=== PATIENT | female | born 1990 | race Hispanic/Latino ===

== ENCOUNTER 2025-02-09 17:06 | Emergency (ER) | payer BC, MEDICAID ==
[~2025-02-09] VITALS: Ht 160 cm; Wt 94.3 kg
[~2025-02-09 17:06] MED LIST: GLYB2.5T6 PO; PREN-64 PO
--- NOTE | 2025-02-09 17:29 | ERN ---
ED Note History of Present Illness Stated Complaint: LEFT ABD PAIN, HEADACHES, CANT SWALLOW Chief Complaint: Abdominal Pain Time Seen by MD: 17:07 Time Seen by Midlevel: 17:07 Dictation: The patient is a 34-year-old female with a history of asthma, migraines, C- section who presents to the emergency department with multiple complaints. Patient reports that four week she has been having sore throat, left lower abdominal pain and suprapubic pain, nausea nonbloody vomiting, nonbloody diarrhea. Patient also reports she has been dealing with a migraine. Reports frontal headache. Reports she gets migraines often. Reports fevers a week ago. Patient also reports occasional nasal congestion. Denies any head trauma. Allergies: Coded Allergies: No Known Drug Allergies (Unverified Allergy, Unknown, 08/31/19) Home Meds Reported Medications Glyburide (Glyburide 2.5MG Tab) 2.5 Mg Tab, 2.5 MG PO DAILY, TAB 09/01/19 Vit #76/Iron,Carb/FA (Prenatabs Rx Tablet) 1 Each Tablet, 1 EACH PO [id number], TAB 09/01/19 Past Medical History Past Medical History: Anxiety, Asthma, Depression, Hypertension Surgical History: RN Note Reviewed/Agreed w/PFSH: Yes Review of System Dictation Constitutional: Negative for chills, and weight loss positive for fever Eyes: Negative for injury, pain,redness, and discharge ENT: Negative for injury,pain or swelling positive for nasal congestion , sore throat Cardiovascular: Negative for chest pain, palpitations, and edema Respiratory: Negative for shortness of breath, cough, and wheezing, Abdomen/GI: Negative for constipation positive for abdominal pain, nausea, vomiting, diarrhea Back: Negative for injury and pain : Negative for injury, bleeding and discharge MS/Extremity: Negative for injury and deformity Skin: Negative for rash, and discoloration Neuro: Negative for , weakness, numbness, tingling, and seizure positive for headache Psych: Negative for suicide ideation, homicidal ideation, and hallucinations Initial Vital Sign VS Vital Signs Date Time Temp Pulse Resp B/P (MAP) Pulse Ox O2 Delivery O2 Flow Rate FiO2 02/09/25 17:13 99.0 90 18 148/100 99 Room Air 0 02/09/25 18:51 21 Physical Exam Dictation Vital Signs reviewed General Appearance: Alert, oriented x 3, no acute distress, well developed, nourished. Head and Face: non-traumatic. Eyes: PERRL, pink conjunctivas, eyelid no trauma, anterior chamber with arcus senilis. Ears: Pinnas intact and no signs of trauma or erythema ear canals clear and no discharge TM no erythema Nose: No discharge, no bleeding. Oropharynx: Mouth normal, tongue pink. pharynx clear,+ erythema, tonsils no exudates,3+ no abscesses noted, no uvula deviation, mucous membrane moist Neck: Supple, non-tender, no thyromegaly, no masses, no JVD, no bruits Breast:Deferred Chest:No tenderness, no crepitus, no paradoxical movement, no retractions Lungs:Clear, well-ventilated, symmetric, no rales, no wheezing, no rhonchi, no stridor, good breath sounds bilaterally Heart: Regular rate, regular rhythm, no murmur, no gallops Vascular: no peripheral edema, Abdomen: Soft, positive bowel sounds, nondistended, no guarding, nontender, no rebound, no masses no hepatomegaly, no splenomegaly, no Ruiz's sign, no hernias. Rectal: Deferred Genital: Deferred Neurological: Normal speech, motor function intact, sensory function intact Musculoskeletal: Neck nontender, full range of motion, back nontender, full range of motion, Extremities: nontender, full range of motion Skin: Color pink, dry, no turgor, no rash, no lacerations, no abrasions, no contusions. Lymphatic: Deferred Results (Laboratory/Radiology) Laboratory/Radiology Laboratory Tests Test 02/09/25 17:20 02/09/25 17:34 02/09/25 19:25 Influenza Type A Antigen Negative For Type A Influenza Type B Antigen Negative For Type B SARS-CoV-2 Antigen (Rapid) PRESUMPTIVE NEGATIVE Group A Streptococcus Rapid negative (NEGATIVE) White Blood Count 10.1 K/uL (4.8-10.8) Red Blood Count 4.40 MIL/uL (4.00-5.50) Hemoglobin 12.0 g/dL (12.0-16.0) Hematocrit 37.5 % (36-48) Mean Corpuscular Volume 85.2 fL (79-99) Mean Corpuscular Hemoglobin 27.3 pg (27.0-33.0) Mean Corpuscular Hemoglobin Concent 32.0 g/dL (32.0-36.0) Red Cell Distribution Width 15.1 % (11.0-15.5) Platelet Count 325 K/uL (130-400) Mean Platelet Volume 9.5 fL (7.5-10.5) Immature Granulocyte % (Auto) 0.3 % (0-1) Neutrophils (%) (Auto) 75.4 % (40.0-77.0) Lymphocytes (%) (Auto) 14.9 % (21.0-51.0) L Monocytes (%) (Auto) 8.2 % (3.0-13.0) Eosinophils (%) (Auto) 1.0 % (0.0-8.0) Basophils (%) (Auto) 0.2 % (0.0-5.0) Neutrophils # (Auto) 7.6 K/uL (1.8-7.7) Lymphocytes # (Auto) 1.5 K/uL (1.0-4.8) Monocytes # (Auto) 0.8 K/uL (0.1-1.0) Eosinophils # (Auto) 0.10 K/uL (0.00-0.70) Basophils # (Auto) 0.02 K/uL (0.00-0.20) Absolute Immature Granulocyte (auto 0.03 K/uL (0-1) Nucleated Red Blood Cells 0.0 % (0.0-0.19) Sodium Level 142 mmol/L (136-145) Potassium Level 3.3 mmol/L (3.5-5.1) L Chloride Level 104 mmol/L (101-111) Carbon Dioxide Level 29 mmol/L (21-32) Blood Urea Nitrogen 7 mg/dL (7-18) Creatinine 0.7 mg/dL (0.5-1.0) Glomerular Filtration Rate Calc 118 mL/min (>90) Random Glucose 133 mg/dL (70-105) H Total Calcium 9.1 mg/dL (8.5-10.1) Lipase 30 U/L (16-77) Urine Color YELLOW (YELLOW) Urine Appearance CLEAR (CLEAR) Urine pH 7.0 (5.0-8.0) Urine Specific Gipsy 1.010 (1.001-1.031) Urine Protein NEGATIVE mg/dL (NEGATIVE) Urine Glucose (UA) NEGATIVE mg/dL (NEGATIVE) Urine Ketones NEGATIVE mg/dL (NEGATIVE) Urine Occult Blood NEGATIVE (NEGATIVE) Urine Nitrate NEGATIVE (NEGATIVE) Urine Bilirubin NEGATIVE mg/dL (NEGATIVE) Urine Urobilinogen 4.0 mg/dL (0.2-1.0) H Urine Leukocyte Esterase NEGATIVE Robert/uL Urine RBC 2-5 /HPF (0-1) H Urine WBC 2-5 /HPF (0-1) H Urine Squamous Epithelial Cells FEW /HPF (0-2) Urine Non-Squamous Epithelial Cells <1 /HPF (0-2) Urine Bacteria RARE /HPF (None Seen) Urine HCG, Qualitative NEGATIVE (NEGATIVE) REASON: left lower abd pain ORDERING PHYSICIAN: REJI DAMON PROCEDURE: PELVCOMP - US PELVIC NON-OB COMP ULTRASOUND OF THE PELVIS ULTRASOUND ABD VASCULAR LIMITED INDICATION: Pelvic pain COMPARISONS: None TECHNIQUE: Transabdominal real-time sonographic images were acquired earlier, and subsequently made available for review. FINDINGS: The uterus measures 8.6 x 4.8 x 4.8 cm. The uterus is normal in echotexture and contour. The endometrial thickness measures 5.0 mm. A few cervical nabothian cysts demonstrated, largest of which measures up to 0.9 cm. The right ovary measures 3.5 x 2.7 x 2.3 cm. The right ovary is normal in size, shape and echogenicity. No right adnexal masses demonstrated. Color Doppler flow is normal throughout the right ovary. Spectral Doppler analysis demonstrates a normal waveform pattern. The slightly follicular left ovary measures 2.6 x 2.0 x 2.3 cm. The left ovary is normal in size, shape and echogenicity. No left adnexal masses demonstrated. Color Doppler flow is normal throughout the left ovary. Spectral Doppler analysis demonstrates a normal waveform pattern. No free pelvic fluid demonstrated. IMPRESSION: No acute pelvic abnormality noted. Labs Reviewed?: Yes ED Course ED Course Orders Procedure Category Date Status Time Covid19 (Sars Antigen LAB 02/09/25 Complete Rapid) 17:21 Influenza Type A & B, LAB 02/09/25 Complete Rapid 17:21 Rapid (Group A Strep) LAB 02/09/25 Complete 17:21 Urinalysis Profile LAB 02/09/25 In Process 17:21 ,Urine Test LAB 02/09/25 In Process 17:21 Cbc With Differential LAB 02/09/25 Complete 17:21 Lipase LAB 02/09/25 Complete 17:21 Basic Metabolic Panel LAB 02/09/25 Complete 17:21 Acetaminophen 500mg PHA 02/09/25 Complete Tab (Tylenol 500mg T 17:30 0.9%Nacl 1000ml (Ns PHA 02/09/25 Complete 1000ml) 17:30 Ondansetron 4mg Inj PHA 02/09/25 Complete (Zofran 4mg Inj) 17:30 Us Pelvic Non-Ob Comp US 02/09/25 Resulted 17:21 Ceftriaxone 1g Vial PHA 02/09/25 Complete (Rocephine 1g Inj) 19:30 Methylprednisolone PHA 02/09/25 Complete Succ 125mg (Solu-Medr 19:30 Potassium Bicarb/Cit PHA 02/09/25 Complete Ac 25meq (K-Lyte Ta 19:30 Current Medications Medications (Trade) Dose Ordered Sig/Mark Route PRN Reason Start Time Stop Time Status Last Admin Dose Admin Acetaminophen (TYLenol 500MG TAB) 1,000 mg ONCE ONCE PO 02/09/25 17:30 02/09/25 17:31 DC 02/09/25 18:20 Ceftriaxone Sodium (ROCEphine 1G INJ) 1 gm ONCE ONCE IVPB 02/09/25 19:30 02/09/25 19:31 DC Methylprednisolone Sodium Succinate (Solu-medROL 125MG) 125 mg ONCE ONCE IVP 02/09/25 19:30 02/09/25 19:31 DC Ondansetron HCl (zoFRAN 4MG INJ) 4 mg ONCE ONCE IVP 02/09/25 17:30 02/09/25 17:31 DC 02/09/25 18:20 Potassium Bicarbonate (K-Lyte Tablet Eff 25 Meq Tablet.eff) 25 meq ONCE ONCE PO 02/09/25 19:30 02/09/25 19:31 DC Sodium Chloride 1,000 ml @ 0 mls/hr ONCE ONCE IV 02/09/25 17:30 02/09/25 17:31 DC 02/09/25 18:19 Vital Signs Date Time Temp Pulse Resp B/P (MAP) Pulse Ox O2 Delivery O2 Flow Rate FiO2 02/09/25 18:51 99.0 100 18 138/94 100 Room Air* 0 21 02/09/25 17:13 99.0 90 18 148/100 99 Room Air 0 Medical Decision Making MDM The patient is a 34-year-old female with a history of asthma, migraines, C- section who presents to the emergency department with multiple complaints. Patient reports that four week she has been having sore throat, left lower abdominal pain and suprapubic pain, nausea nonbloody vomiting, nonbloody diarrhea. Patient also reports she has been dealing with a migraine. Reports frontal headache. Reports she gets migraines often. Reports fevers a week ago. Patient also reports occasional nasal congestion. Denies any head trauma. CBC showed no leukocytosis, no anemia, chemistry showed mild hypokalemia, negative lipase, normal renal function, serology negative.urinalysis negative for nitrates and leukocyte esterase Pelvic ultrasound revealed no acute pathology. Patient presents to the emergency department with complaints of sore throat with no signs of abscess. , nasal congestion, fevers, abdominal pain, nausea vomiting and diarrhea. Patient in no acute distress, nontender abdomen to palpation, neurological intact. Stable vital signs we will be discharged to follow up with PCP. Differential diagnosis: Strep throat, upper respiratory infection, gastroenteritis, ovarian cyst, electrolyte imbalance Need for hospitalization: Patient does not meet criteria for hospitalization. There are no social concerns with this patient. DX & DISP Disposition: Discharge Departure Impression: Primary Impression: Pharyngitis Additional Impressions: Gastroenteritis, Hypokalemia, Headache Condition: Stable Scripts Amoxicillin (Amoxicillin) 500 Mg Tablet 1 TAB PO BID for 10 Days, #20 TAB 0 Refills Prov: REJI DAMON HEALTH TECHNICIAN 02/09/25 Ondansetron (Ondansetron Odt) 4 Mg Tab.rapdis 4 MG PO Q6HPRN PRN for nausea, #16 TAB 0 Refills Prov: REJI DAMON HEALTH TECHNICIAN 02/09/25 Additional Instructions: Please follow up with your pcp in 1-2 days. continue oral hydration as tolerated. Start with blan diet like bananas, rice, applesauce and toast. If symptoms worsen please return to ER. FOLLOW-UP WITH PRIMARY CARE PROVIDER IN 1 TO 2 DAYS. TAKE MEDICATIONS DIRECTED HERE IN THE EMERGENCY ROOM. OKAY TO CONTINUE HOME MEDICATIONS UNLESS OTHERWISE DISCUSSED DURING YOUR VISIT IN THE EMERGENCY ROOM TODAY. RETURN TO YOUR NEAREST EMERGENCY ROOM IF SYMPTOMS WORSEN OR IF THERE IS NO IMPROVEMENT. CALL 911 IF YOU NEED IMMEDIATE ASSISTANCE. TAKE TYLENOL OR MOTRIN [id number] NEEDED AND IF NO CONTRAINDICATIONS ARE PRESENT. INCREASE ORAL HYDRATION. A WOUND CULTURE OR URINE CULTURE WAS ORDERED HERE IN THE EMERGENCY ROOM DEPARTMENT PLEASE FOLLOW-UP WITH PRIMARY CARE PROVIDER AND ADVISE THEM TO GET REPEAT PORTS FROM OUR FACILITY. IF YOU HAD ANY ANGELA WRAP/SPLINTS THAT WERE APPLIED HERE, PLEASE DO NOT REMOVE THEM UNTIL YOU SEE YOUR PRIMARY CARE OR SPECIALTY. Referrals: CECELIA ARENAS MD (PCP) Time of Disposition: 19:48 I have reviewed the case, and I agree with, Diagnosis and Plan REJI DAMON HEALTH TECHNICIAN February 09, 2025 17:29
[2025-02-09 17:39] LABS: RAPID GROUP A STREP negative (NEGATIVE)
[2025-02-09 17:39] LABS: BASOPHILS # (AUTO) 0.02 K/uL (0.00-0.20); BASOPHILS % (AUTO) 0.2 % (0.0-5.0); HEMATOCRIT 37.5 % (36-48); IMMATURE GRANULOCYTE ABSOLUTE 0.03 K/uL (0-1); LYMPHOCYTES # (AUTO) 1.5 K/uL (1.0-4.8); LYMPHOCYTES % (AUTO) 14.9 % (21.0-51.0); MEAN CORPUSCULAR HEMOGLOBIN 27.3 pg (27.0-33.0); MEAN CORPUSCULAR VOLUME 85.2 fL (79-99); MONOCYTES # (AUTO) 0.8 K/uL (0.1-1.0); MONOCYTES % (AUTO) 8.2 % (3.0-13.0); NEUTROPHILS # (AUTO) 7.6 K/uL (1.8-7.7); NEUTROPHILS % (AUTO) 75.4 % (40.0-77.0); PLATELET COUNT (AUTO) 325 K/uL (130-400); RED CELL DISTRIBUTION WIDTH 15.1 % (11.0-15.5); WHITE BLOOD COUNT (AUTO) 10.1 K/uL (4.8-10.8)
[2025-02-09 17:47] LABS: CREATININE 0.7 mg/dL (0.5-1.0); POTASSIUM 3.3 mmol/L (3.5-5.1)
[2025-02-09 17:49] LABS: COVID19 (SARS ANTIGEN RAPID) PRESUMPTIVE NEGATIVE (NEGATIVE); INFLUENZA TYPE A Negative For Type A (NEGATIVE); INFLUENZA TYPE B Negative For Type B (NEGATIVE)
[2025-02-09] MEDS: 0.9%NACL 1000ML 1,000 ML IV ONE (18:19)
[2025-02-09] MEDS: acetaMINOPHEN 500 MG TABLET PO ONE (18:20)
[2025-02-09] MEDS: ondanSETRON 4MG INJ IVP ONE (18:20)
--- NOTE | 2025-02-09 18:34 | HMCIMG ---
ULTRASOUND OF THE PELVIS ULTRASOUND ABD VASCULAR LIMITED INDICATION: Pelvic pain COMPARISONS: None TECHNIQUE: Transabdominal real-time sonographic images were acquired earlier, and subsequently made available for review. FINDINGS: The uterus measures 8.6 x 4.8 x 4.8 cm. The uterus is normal in echotexture and contour. The endometrial thickness measures 5.0 mm. A few cervical nabothian cysts demonstrated, largest of which measures up to 0.9 cm. The right ovary measures 3.5 x 2.7 x 2.3 cm. The right ovary is normal in size, shape and echogenicity. No right adnexal masses demonstrated. Color Doppler flow is normal throughout the right ovary. Spectral Doppler analysis demonstrates a normal waveform pattern. The slightly follicular left ovary measures 2.6 x 2.0 x 2.3 cm. The left ovary is normal in size, shape and echogenicity. No left adnexal masses demonstrated. Color Doppler flow is normal throughout the left ovary. Spectral Doppler analysis demonstrates a normal waveform pattern. No free pelvic fluid demonstrated. IMPRESSION: No acute pelvic abnormality noted.
[2025-02-09 19:37] LABS: APPEARANCE,URINE CLEAR (CLEAR); BILIRUBIN,URINE NEGATIVE (NEGATIVE); COLOR,URINE YELLOW (YELLOW); GLUCOSE, URINE (UA) NEGATIVE (NEGATIVE); KETONES,URINE NEGATIVE (NEGATIVE); LEUKOCYTE ESTERASE ,URINE NEGATIVE Leu/uL (NEGATIVE); NITRATE,URINE NEGATIVE (NEGATIVE); OCCULT BLOOD,URINE NEGATIVE (NEGATIVE); PROTEIN,URINE NEGATIVE (NEGATIVE)
[2025-02-09 19:38] LABS: ADD UA MICROSCOPIC YES
[2025-02-09 19:41] LABS: HCG,QUALITATIVE URINE NEGATIVE (NEGATIVE)
[2025-02-09 19:43] LABS: BACTERIA,URINE RARE /HPF (None Seen); MUCUS,URINE FEW LPF (None Seen); NON-SQUAMOUS EPITHELIAL CELL <1 /HPF (0-2); SQUAMOUS EPITHELIAL CELL,UR FEW /HPF (0-2)
[2025-02-09] MEDS: cefTRIAXone 1G VIAL IVPB ONE (19:43)
[2025-02-09] MEDS: PoTASSium BIcarbonate/CIT AC 25 MEQ TABLET.EFF PO ONE (19:43)
[2025-02-09] MEDS: Solu-medROL 125MG VIAL IVP ONE (19:43)
[2025-02-09] MEDS ORDERED: ONDA-243 PO (19:49)
[2025-02-09] MEDS ORDERED: AMOX500T2 PO (19:49)
[2025-02-09 20:15] VITALS: BP 125/81; PULSE 91; RESP 18; TEMP 98.5; O2SAT 99
== END 2025-02-09 20:21 | disposition home or self-care (01) ==
LOC: EDH 17:06
DX: J02.9 Acute pharyngitis, unspecified (principal); K52.9 Noninfective gastroenteritis and colitis, unspecified; E87.6 Hypokalemia; I10 Essential (primary) hypertension; J45.909 Unspecified asthma, uncomplicated; Z79.84 Long term (current) use of oral hypoglycemic drugs; Z20.822 Contact with and (suspected) exposure to COVID-19
CPT/HCPCS: 99284; 96365; 76856; 96375; 87426; 80048; 83690; 85025; 87880; 87804 ×2; 81001; 81025; 36415; J2919; J7030; J0696; J2405